=== PATIENT | female | born 1940 | race Caucasian/White ===

== ENCOUNTER 2017-11-20 10:14 | Day surgery (SDC) | payer OTHER, MEDICARE ==
[2017-11-19 15:34] VITALS: BMI 23.8
[2017-11-20] MEDS ORDERED: BUPIVACAINE HCL/PF 0.5% (5MG/ML) 10 ML VIAL ONE (13:02)
--- NOTE | 2017-11-20 13:07 | HP ---
Satellite [facility] - Chief Complaint History of Present Illness: 77 year old woman with Chronic Kidney Disiease will require initiation of dialysis in the near future. She would like to use peritoneal dialysis. History Source: Patient Limitations to Obtaining History: No Limitations - Past Medical History Allergies/Adverse Reactions: Allergies Allergy/AdvReac Type Severity Reaction Status Date / Time Cephalosporins Allergy Severe Swelling Verified 11/19/17 15:35 levofloxacin [From Levaquin] Allergy Severe Swelling Verified 11/19/17 15:44 Penicillins Allergy Severe Swelling Verified 11/19/17 15:35 Cardiovascular: Yes: HTN Renal/: Yes: Renal Inusuff - Current Medications Current Medications: Home Medications Medication Instructions Recorded Atorvastatin Ca [Lipitor] 10 mg PO HS 11/19/17 Sevelamer Carbonate [Renvela] 1,600 mg PO TID 11/19/17 Torsemide 100 mg PO DAILY 11/19/17 Valsartan 160 mg PO DAILY 11/19/17 Satellite Physical Exam - Physical Examination Vital Signs: Vital Signs Period Temp Pulse Resp BP Sys/Koehler Pulse Ox Last 24 Hr 98.1 F-98.1 F 86-86 20-20 178-178/93-93 96 General Appearance: Alert & Oriented x3 ENT: Clear Lung: Clear to auscultation Heart: Regular rate & rhythm Abdomen: Soft Extremities: No edema Satellite Impression/Plan - Impression/Plan Impression: CKD stage 4-5 Operative Procedure: Laparosocopy, placement of peritoneal dialysis catheter Date to be Performed: 11/20/17
[2017-11-20] MEDS ORDERED: oxyCODONE HCL 5 MG TABLET PO PRN ×2 (13:13→15:15)
[2017-11-20] MEDS ORDERED: PROPOFOL 20 ML ONE (13:23)
[2017-11-20] MEDS ORDERED: MIDAZOLAM HCL 2 MG/2 ML SINGLE DOSE VIAL ONE (13:24)
[2017-11-20] MEDS ORDERED: ROCURONIUM BROMIDE 50 MG/5 ML VIAL ONE (13:24)
[2017-11-20] MEDS ORDERED: CLINDAMYCIN PHOSPHATE 600 MG/4 ML VIAL ONE (13:42)
[2017-11-20] MEDS ORDERED: CLINDAMYCIN PHOSPHATE 300 MG/2 ML VIAL IVPB ONE (13:44)
[2017-11-20] MEDS ORDERED: BUPIVACAINE HCL/PF 0.5% (5MG/ML) 10 ML VIAL IJ ONE (13:47)
[2017-11-20] MEDS ORDERED: GLYCOPYRROLATE 0.2 MG/1 ML VIAL ONE (13:48)
[2017-11-20] MEDS ORDERED: NEOSTIGMINE METHYLSULFATE 0.5 MG/ML - 10 ML MDV ONE (13:48)
--- NOTE | 2017-11-20 14:20 | OP ---
Operative Note - Note: Operative Date: 11/20/17 Pre-Operative Diagnosis: ESRD on HD Operation: Laparoscopy, placement of peritoneal dialysis catheter Findings: No intraabdominal adhesions. Implants: Kidder neck double cuff Tenchkoff catheter Post-Operative Diagnosis: Same as Pre-op Surgeon: Ovidio Paredes Anesthesiologist/BRIM PLATER: Shelby Grijalva Anesthesia: General
[2017-11-20] MEDS ORDERED: ACETAMINOPHEN 325 MG TABLET (FP) PO PRN ×2 (15:14→15:15)
[2017-11-20] MEDS ORDERED: ONDANSETRON 4 MG/2 ML VIAL IVPUSH PRN (15:14)
[2017-11-20 15:15] VITALS: PULSE 74
[2017-11-20] MEDS ORDERED: SODIUM CHLORIDE 1,000 ML IV SCH (15:15)
--- NOTE | 2017-11-20 16:34 | OP ---
DATE OF OPERATION: 11/20/2017 SURGEON: Ovidio Paredes MD PROCEDURE: Laparoscopic placement of peritoneal dialysis catheter. PREOPERATIVE DIAGNOSIS: End-stage renal disease. POSTOPERATIVE DIAGNOSIS: End-stage renal disease. ANESTHESIA: General. ANESTHESIOLOGIST: Dr. Grijalva. OPERATIVE FINDINGS: There were no intraabdominal adhesions. OPERATIVE PROCEDURE: Following routine patient identification, general anesthesia was induced. The abdomen was prepped with ChloraPrep. A time-out was performed. A Veress needle was inserted atraumatically through the umbilicus into the peritoneal cavity and pneumoperitoneum was established with carbon dioxide to 15 mmHg pressure. Marcaine 0.5% was infiltrated in the midline above the umbilicus and a 5 mm Opti-Port was placed under laparoscopic visualization. The abdominal cavity was then explored with a 30-degree angle laparoscope. Another incision was made above and to the left of the umbilicus. An 8 mm bladeless trocar was advanced to the underside of the peritoneum and then directed toward the pelvis, where it was brought into the abdominal cavity at the level of the upper pelvis. A swan-neck curled double cuff Tenckhoff catheter was straightened with a wire and advanced through the 8 mm port and deployed into the pelvis. The inner cuff was left just deep to the fascia. The other end of the catheter was attached to a curved metal tunneler which was passed in the subcutaneous plane from the incision into the point in the right lower quadrant skin that had been chosen for the catheter. The Luer Lock Adaptor was applied and 1 L of saline was run into the abdominal cavity after evacuating pneumoperitoneum. This took approximately 3 minutes and 15 seconds. The bed was dropped to the floor and the fluid drained easily. The catheter was capped after draining approximately 800 mL of the fluid. The ports were removed. The incisions were closed with subcutaneous sutures of 3-0 Vicryl and subcuticular suture of 4-0 Biosyn. Dermabond glue was applied as a dressing. The catheter was fixed to the skin with a Bioclusive dressing and covered with an ABD pad. The patient was extubated and taken to the recovery room in stable condition. Josep MARTINEZ/[id number]
[2017-11-20 17:24] VITALS: BP 142/68; TEMP 97.8
== END 2017-11-20 17:15 | disposition home or self-care (01) ==
LOC: JASU-SURG 10:14
PROVIDERS: ATTEND Surgery
PROC: 0WHG43Z Insertion of Infusion Device into Peritoneal Cavity, Percutaneous Endoscopic Approach (ICD-10-PCS; principal; 2017-11-20 12:30)
DX: I12.0 Hypertensive chronic kidney disease with stage 5 chronic kidney disease or end stage renal disease (principal); E13.22 Other specified diabetes mellitus with diabetic chronic kidney disease; E13.65 Other specified diabetes mellitus with hyperglycemia; N18.6 End stage renal disease; Z99.2 Dependence on renal dialysis
CPT/HCPCS: 36415; 84132; 94760

== ENCOUNTER 2017-11-27 14:05 | Emergency (ER) | payer OTHER, MEDICARE ==
--- NOTE | 2017-11-27 14:08 | PDOC ---
Rapid Medical Evaluation Time Seen by Provider: 11/27/17 14:08 Medical Evaluation: Allergies Allergy/AdvReac Type Severity Reaction Status Date / Time Cephalosporins Allergy Severe Swelling Verified 11/19/17 15:35 levofloxacin [From Levaquin] Allergy Severe Swelling Verified 11/19/17 15:44 Penicillins Allergy Severe Swelling Verified 11/19/17 15:35 11/27/17 14:09 77 year old female with ESRD on peritoneal dialysis Sat/Sat/Sat schedule (but did Sat/ this week). PD cath was recently placed by Dr. Paredes 11/20. Is here with expanding hematoma around surgical site. Noted bleeding from catheter on Saturday. Feeling SOB, fatigued, notes persistent edema in LEs. Sent by Dr. Paredes for labs and CT. BP 138/94 which patient states is "very low" for her. Plan: -EKG -Labs including CBC, CMP, PT/INR, T&S -CXR -CTAP - ? contrast needed? Call placed to Dr. Paredes to discuss -To Main ED for further eval Business Continuity Management Director is Dr. Mazariegos at [facility] ([phone]).
[2017-11-27 14:16] VITALS: BMI 25.9
--- NOTE | 2017-11-27 14:29 | PDOC ---
History of Present Illness - General Chief Complaint: Edema Stated Complaint: PCP SENT Time Seen by Provider: 11/27/17 14:08 History Source: Patient - History of Present Illness Initial Comments: 11/27/17 15:05 77 year old female presents with abdominal ecchymosis. Patient had a L abdominal peritoneal HD shunt placement on 11/20 without any reported post-op complications including fevers, incision site bleeding/edema/warmth. States she was evaluated by her home health nurse who noticed the ecchymosis earlier this week and when the ecchymosis spread her nurse spoke to her surgeon (Dr. Paredes) who directed patient to come to the ED for further evaluation. Patient denies any chest pain, shortness of breath, abdominal pain, fevers/ chills, recent travel or sick contacts. Past History - Past Medical History Allergies/Adverse Reactions: Allergies Allergy/AdvReac Type Severity Reaction Status Date / Time Cephalosporins Allergy Severe Swelling Verified 11/27/17 14:10 levofloxacin [From Levaquin] Allergy Severe Swelling Verified 11/27/17 14:10 Penicillins Allergy Severe Swelling Verified 11/27/17 14:10 Home Medications: Ambulatory Orders Atorvastatin Ca [Lipitor] 10 mg PO HS 11/19/17 Sevelamer Carbonate [Renvela] 1,600 mg PO TID 11/19/17 Torsemide 100 mg PO DAILY 11/19/17 Valsartan 160 mg PO DAILY 11/19/17 oxyCODONE HCL [Roxicodone -] 5 mg PO Q6H PRN #20 tablet MDD 4 11/20/17 Anemia: Yes Asthma: Yes COPD: No CHF: Yes Diabetes: Yes GI Disorders: No HTN: Yes Hypercholesterolemia: Yes Liver Disease: No Thyroid Disease: No - Suicide/Smoking/Psychosocial Hx Smoking History: Former smoker Have you smoked in the past 12 months: No If you are a former smoker, when did you quit?: 30yrs ago Information on smoking cessation initiated: No Hx Alcohol Use: No Drug/Substance Use Hx: No Substance Use Type: None *Physical Exam - Vital Signs Last Vital Signs Temp Pulse Resp BP Pulse Ox 98.3 F 79 18 138/94 98 11/27/17 14:10 11/27/17 14:10 11/27/17 14:10 11/27/17 14:10 11/27/17 14:10 - Physical Exam Neck: positive: Trachea midline, Supple Respiratory/Chest: positive: Lungs Clear Cardiovascular: positive: S1, S2, Murmur Gastrointestinal/Abdominal: positive: Normal Bowel Sounds, Soft, Other (midline ecchymosis). negative: Tender, Hernia, Mass Musculoskeletal: negative: CVA Tenderness (R), CVA Tenderness (L) Extremity: positive: Normal Capillary Refill, Normal Inspection Integumentary: positive: Normal Color, Dry, Warm Neurologic: positive: Fully Oriented, Alert ED Treatment Course - LABORATORY CBC & Chemistry Diagram: 11/27/17 15:00 11/27/17 15:00 Medical Decision Making - Medical Decision Making 11/27/17 15:04 77 year old female presents w/abominal ecchymosis s/p recent L abdominal peritoneal shunt placement. VS unremarkable. Will obtain CT abdomen to r/o rectus sheath hematoma, intrabdominal bleeding. 11/27/17 16:17 Case d/w Dr. Rockwell - agrees with POC 11/28/17 07:36 CT demonstrates no intra abdominal bleeding. Clinical impression for post- surgical ecchymosis w/o intraabdominal bleed/hematoma. Patient ambulatory around unit, requesting PO intake. Will discharge home with return precautions and counseling to keep scheduled surgical follow-up. I discussed the physical exam findings, ancillary test results and final diagnoses with the patient. I answered all of the patient's questions. The patient was satisfied with the care received and felt comfortable with the discharge plan and treatment plan. The patient will return to the Emergency Department with any new, persistent or worsening symptoms. *DC/Admit/Observation/Transfer Diagnosis at time of Disposition: Ecchymosis - Discharge Dispostion Disposition: HOME Condition at time of disposition: Good Decision to Admit order: No - Referrals - Patient Instructions Printed Discharge Instructions: Peritoneal Dialysis, Peritoneal Dialysis Diet Additional Instructions: Please follow up with your primary care doctor in the next 24-48 hours Return to the Emergency Department for any new/worsening/concerning symptoms. - Post Discharge Activity
[2017-11-27 15:20] LABS: BASO % 0.6 % (0-2.0); HEMATOCRIT 33.3 % (32.4-45.2); HEMOGLOBIN 11.1 GM/dL (10.7-15.3); LYMPH % 13.4 % (8-40); MCHC 33.4 g/dl (32.0-36.0); MEAN PLT VOLUME 9.2 fl (7.5-11.1); PLATELET COUNT 58 K/MM3 (134-434); RBC 3.83 M/mm3 (3.60-5.2); RDW 16.7 % (11.6-15.6); WHITE BLOOD COUNT 8.6 K/mm3 (4.0-10.0)
[2017-11-27 15:40] LABS: INR 1.05 (0.82-1.09); PROTHROMBIN TIME (PATIENT) 11.9 SEC (9.7-13.0)
--- NOTE | 2017-11-27 15:49 | PDOC ---
Attending Attestation - Resident Resident Name: Héctor Maganaica - ED Attending Attestation I have performed the following: I have examined & evaluated the patient, The case was reviewed & discussed with the resident, I agree w/resident's findings & plan, Exceptions are as noted - HPI HPI: 11/27/17 17:51 Ms Ibarra is a 77 yo F s/p Peritoneal Dialysis cathether placement by Dr. Paredes 11/20 with resulting local bruising Noted bleeding from catheter on Saturday. Pt reports feeling SOB, fatigued, notes persistent edema in LEs. No abdominal pain No lightheadedness or weakness Pt sent to the ER to evaluate for intra-abdominal bleeding, rectus sheath hematoma - Physicial Exam PE: 11/27/17 17:55 Neck: positive: Trachea midline, Supple Respiratory/Chest: Lungs Clear Cardiovascular: positive: S1, S2, Murmur Gastrointestinal/Abdominal: Normal Bowel Sounds, Soft, Other (midline ecchymosis ) Musculoskeletal: negative: CVA Tenderness Extremity: positive: Normal Capillary Refill, Normal Inspection Integumentary: abdominal wall bruising Neurologic: positive: Fully Oriented, Alert - Medical Decision Making 11/27/17 17:58 77 yo F presenting for evaluation of abdominal bruising s/p placement of PD cathether Likely local bruising, unlikely intra-abdominal bleeding Will do labs, CT abd and pelvis 11/27/17 17:59 Laboratory Tests 11/27/17 11/27/17 15:00 15:00 WBC 8.6 Hgb 11.1 Hct 33.3 Plt Count 58 L Sodium 137 Potassium 3.6 Chloride 95 L Carbon Dioxide 25 Anion Gap 17 H BUN 49 H Creatinine 5.2 H Random Glucose [address] demonstrates no intra abdominal bleeding Will update Dr Paredes Will discharge to home Clinical impression: post surgical bruising, initial presentation
[2017-11-27 16:13] LABS: ALBUMIN 3.6 g/dl (3.4-5.0); ALK PHOS 85 U/L (45-117); ANION GAP 17 (8-16); BILIRUBIN,TOTAL 0.8 mg/dL (0.2-1.0); BLOOD UREA NITROGEN 49 mg/dL (7-18); CALCIUM 8.6 mg/dL (8.5-10.1); CHLORIDE 95 mmol/L (98-107); CO2 25 mmol/L (21-32); CREATININE 5.2 mg/dL (0.55-1.02); GLUCOSE,RANDOM 213 mg/dL (74-106); POTASSIUM 3.6 mmol/L (3.5-5.1); SGOT/AST 16 U/L (15-37); SGPT/ALT 18 U/L (12-78); SODIUM 137 mmol/L (136-145)
[2017-11-27 18:44] VITALS: BP 135/75; PULSE 81; TEMP 98.1
--- NOTE | 2017-11-28 11:29 | EKG ---
Test Reason : Blood Pressure : / mmHG Vent. Rate : 072 BPM Atrial Rate : 072 BPM P-R Int : 176 ms QRS Dur : 112 ms QT Int : 442 ms P-R-T Axes : 075 013 206 degrees QTc Int : 483 ms NORMAL SINUS RHYTHM POSSIBLE LEFT ATRIAL ENLARGEMENT LEFT VENTRICULAR HYPERTROPHY WITH REPOLARIZATION ABNORMALITY ABNORMAL ECG NO PREVIOUS ECGS AVAILABLE Confirmed by MAEGAN PITTMAN MD ([id number]) on 11/28/2017 11:28:50 AM Referred By: Confirmed By:MAEGAN PITTMAN MD
== END 2017-11-27 18:35 | disposition home or self-care (01) ==
LOC: JER 14:05
DX: R58 Hemorrhage, not elsewhere classified (principal); E78.00 Pure hypercholesterolemia, unspecified; Z87.891 Personal history of nicotine dependence; J45.909 Unspecified asthma, uncomplicated; I50.9 Heart failure, unspecified; E11.9 Type 2 diabetes mellitus without complications; Z99.2 Dependence on renal dialysis
CPT/HCPCS: 36415; 71046-TC-FY; 74176-TC; 80053; 85025; 85610; 86850; 86900; 86901; 93005; 93010; 99283-25